=== PATIENT | female | born 1995 | race Caucasian/White ===

== ENCOUNTER 2019-01-21 20:38 | Emergency (ER) | payer OTHER ==
[~2019-01-21] VITALS: Ht 170.2 cm; Wt 92.6 kg
[2019-01-21 21:38] LABS: BASO % 0.2 % (0.0-1.0); EOS # 0.1 10^3/uL (0.0-0.5); EOS % 0.9 % (0.0-3.0); HEMATOCRIT 42.3 % (36.0-47.0); HEMOGLOBIN 14.1 g/dl (12.0-15.5); LYMPH # 2.6 10^3/uL (1.5-5.0); LYMPH % 24.3 % (24.0-44.0); MEAN CORPUSCULAR HEMOGLOBIN 30.3 pg (27.0-33.0); MEAN CORPUSCULAR HGB CONC 33.3 g/dl (32.0-36.5); MEAN CORPUSCULAR VOLUME 90.8 fl (80.0-96.0); MONO % 9.1 % (0.0-5.0); NEUTROPHILS # 6.9 10^3/uL (1.5-8.5); NEUTROPHILS % 64.9 % (36.0-66.0); PLATELET COUNT, AUTOMATED 279 10^3/uL (150-450); RED BLOOD COUNT 4.66 10^6/uL (4.00-5.40); WHITE BLOOD COUNT 10.6 10^3/uL (4.0-10.0)
[2019-01-21 22:05] LABS: ALT/SGPT 22 U/L (12-78); BILIRUBIN,DIRECT < 0.1 MG/DL (0.0-0.2); BILIRUBIN,TOTAL 0.2 MG/DL (0.2-1.0); LIPASE 122 U/L (73-393); TOTAL PROTEIN 7.5 GM/DL (6.4-8.2)
[2019-01-21] MEDS ORDERED: ISOVUE-370 76% 100ML VIAL (Q9967) As Ordered ONE (22:54)
[2019-01-21] MEDS ORDERED: NS 1,000 ML IV ONE (23:00)
[2019-01-21] MEDS ORDERED: ONDANSETRON 4MG/2ML VIAL (J2405) IV ONE (23:00)
--- NOTE | 2019-01-22 00:13 | REPVR ---
PROCEDURE INFORMATION: Exam: CT Abdomen And Pelvis With Contrast Exam date and time: 01/21/2019 11:19 PM Clinical history: 23 years old, female; Abdominal pain; Additional info: Rlq pain, llq pain with n/v TECHNIQUE: Imaging protocol: Computed tomography of the abdomen and pelvis with intravenous contrast. Radiation optimization: All CT scans at this facility use at least one of these dose optimization techniques: automated exposure control; mA and/or kV adjustment per patient size (includes targeted exams where dose is matched to clinical indication); or iterative reconstruction. Contrast material: ISO 370; Contrast volume: 100 ml; Contrast route: IV; COMPARISON: No relevant prior studies available. FINDINGS: Lungs: No suspicious mass or airspace process in the visualized lung bases. Liver: Liver appears normal with no focal abnormality. Gallbladder and bile ducts: Gallbladder is present and shows no evidence of gallstone. Pancreas: Pancreas appears normal. No focal mass or peripancreatic inflammation. Spleen: Spleen appears homogeneous without focal mass. Adrenals: Adrenal glands are normal in appearance. Kidneys and ureters: Kidneys appear normal, with no stone, solid mass or hydronephrosis. . Stomach and bowel: No evidence of small bowel obstruction. No evidence of acute diverticulitis. Appendix: Normal caliber appendix is identified, with no adjacent inflammation. Intraperitoneal space: No pneumoperitoneum. Trace free fluid is present in the pelvis. No abnormal pelvic mass. Vasculature: No aortic aneurysm. Main portal and splenic veins enhance normally. Lymph nodes: No enlarged lymph nodes. Bladder: Urinary bladder appears normal. . Reproductive: Prominent periuterine and periovarian vessels. Bones/joints: Bony structures show no acute fracture or destructive process. Bony structures show no acute fracture or destructive process. IMPRESSION: 1. No evidence of acute appendicitis. Normal diminutive appendix lies distal to the cecal tip, with no inflammation. 2. Small volume of pelvic free fluid which is within physiologic range for a female. Prominent pelvic vessels are nonspecific but can be seen with pelvic venous congestion clinical syndrome. 3. Prominent colonic stool, suggesting perhaps mild underlying constipation but no rectal fecal impaction Electronically signed by: Melo Lau On 01/22/2019 00:13:03 AM
--- NOTE | 2019-01-22 00:18 | REPVR ---
PROCEDURE INFORMATION: Exam: US Pelvis Complete, Transabdominal Exam date and time: 01/21/2019 11:39 PM Clinical history: 23 years old, female; Pelvic pain; Additional info: Left pelvic pain, history of cysts TECHNIQUE: Imaging protocol: Real-time transabdominal pelvic ultrasound with image documentation. Complete exam. COMPARISON: CT ABD/PEL W/IV CONTRAST ONLY 01/21/2019 10:52 PM FINDINGS: Uterus measures 8.7 x 2.8 x 5 cm in size. No focal uterine mass. Uterus appears anteverted Endometrial stripe appears homogeneous, measuring 8 mm in thickness. Right ovary measures 2.8 x 2.5 x 2.7 cm in size. No dominant mass or cyst. Left ovary measures 4.2 x 3.1 x 2.7 cm in size. No dominant mass or cyst. Doppler flow is documented in both ovaries. Trace free fluid is present in the pelvis. Bladder measures 3.5 x 3.6 x 6.1 cm. Doppler demonstrates dilated periovarian vessels IMPRESSION: No focal abnormality the uterus or ovaries and no evidence of torsion. Prominent pelvic vessels, which can be seen with pelvic venous congestion syndrome, as discussed in chest CT report Electronically signed by: Melo Lau On 01/22/2019 00:18:07 AM
[2019-01-22 00:55] VITALS: BP 124/69
== END 2019-01-22 01:04 | disposition home or self-care (01) ==
LOC: M ED 20:38
DX: R10.2 Pelvic and perineal pain (principal); N94.89 Other specified conditions associated with female genital organs and menstrual cycle; I10 Essential (primary) hypertension; N83.209 Unspecified ovarian cyst, unspecified side; K58.9 Irritable bowel syndrome, unspecified; R12 Heartburn; F17.210 Nicotine dependence, cigarettes, uncomplicated; Z91.040 Latex allergy status; Z88.8 Allergy status to other drugs, medicaments and biological substances
CPT/HCPCS: 74177; 76830; 76856; 80047; 80076; 81001; 83690; 84702; 85025; 93976; 96361; 96374; 99284; J2405; Q9967